=== PATIENT | female | born 1995 | race Two or more races ===

== ENCOUNTER 2016-11-09 12:15 | Emergency (ER) | payer OTHER ==
[2016-11-09 12:25] VITALS: BP 140/73; BMI 39.2
[2016-11-09] MEDS ORDERED: IBUPROFEN 100 MG/5 ML UNIT DOSE CUPS PO ONE (12:25)
[2016-11-09 13:20] VITALS: PULSE 118; TEMP 100.3
--- NOTE | 2016-11-09 13:22 | PDOC ---
History of Present Illness - General Chief Complaint: Cold Symptoms Stated Complaint: RAPID HEARTBEAT, FEVER Time Seen by Provider: 11/09/16 13:17 History Source: Patient Exam Limitations: No Limitations - History of Present Illness Initial Comments: 11/09/16 15:01 Complaint: Sore throat Patient is a 21-year-old female with 1 day of fever, sore throat. Son has strep. Patient went to her doctor but because her heart rate was elevated they sent her to the ER. Patient has no difficulty speaking and can swallow. Patient does not appear ill GENERAL/CONSTITUTIONAL: +fever, weakness. No: dizziness HEAD, EYES, EARS, NOSE AND THROAT: No change in vision. No ear pain or discharge. +sore throat. CARDIOVASCULAR: No chest pain RESPIRATORY: No shortness of breath or cough GASTROINTESTINAL: No pain, nausea, vomiting, diarrhea or constipation GENITOURINARY: No dysuria MUSCULOSKELETAL: No neck or back pain SKIN: No rash NEUROLOGIC: No headache, vertigo, loss of consciousness, or loss of sensation. GENERAL: The patient is awake, alert, and fully oriented, in no acute distress. HEAD: Normal with no signs of trauma. EYES: Pupils equal, round and reactive to light, sclera anicteric, conjunctiva clear. ENT: pharynx: mild erythema, no exudate, uvula midline NECK: supple CHEST: clear, nontender, rr ABD: soft, nontender EXTREMITIES: Normal range of motion, no edema. NEUROLOGICAL: Normal speech, normal gait. SKIN: Warm, Dry Past History - Past Medical History Allergies/Adverse Reactions: Allergies Allergy/AdvReac Type Severity Reaction Status Date / Time No Known Allergies Allergy Verified 11/09/16 12:21 Home Medications: Ambulatory Orders Amoxicillin - [Amoxicillin 875mg Tablet -] 875 mg PO BID #20 tablet 11/09/16 Anemia: Yes (with past ) Asthma: No Cancer: No Cardiac Disorders: No CVA: No COPD: No CHF: No Dementia: No Diabetes: No GI Disorders: No Disorders: No HTN: No Hypercholesterolemia: No Liver Disease: No Seizures: No Thyroid Disease: No - Surgical History Abdominal Surgery: No Appendectomy: No Cardiac Surgery: No Cholecystectomy: No Lung Surgery: No Neurologic Surgery: No Orthopedic Surgery: No - Reproductive History (#): 5 Para: 1 Cervical CA: No Dysfunctional Uterine Bleeding: No Ectopic : No Endometrial CA: No Polycystic Ovaries: No Therapeutic (s) & number: Yes (3) Tubal Ligation: No Spontaneous : 1 - Immunization History Immunization Up to Date: Yes - Psycho/Social/Smoking Cessation Hx Anxiety: No (DENIES) Suicidal Ideation: No Smoking Status: No Smoking History: Never smoked Have you smoked in the past 12 months: No Number of Cigarettes Smoked Daily: 0 Information on smoking cessation initiated: No Hx Alcohol Use: No Drug/Substance Use Hx: No Substance Use Type: None *Physical Exam - Vital Signs Last Vital Signs Temp Pulse Resp BP Pulse Ox 100.3 F H 118 H 18 140/73 100 11/09/16 13:20 11/09/16 13:20 11/09/16 12:22 11/09/16 12:22 11/09/16 12:22 ED Treatment Course - Medications Given in the ED: ED Medications Discontinued Medications Generic Name Dose Route Start Last Admin Trade Name Rachid PRN Reason Stop Dose Admin Ibuprofen 600 mg 11/09/16 12:25 11/09/16 12:27 Motrin Oral Suspension - PO 11/09/16 12:26 600 mg NOW ONE Administration Medical Decision Making - Medical Decision Making 11/09/16 15:04 Patient will have strep done, also wants flu swab done. Strep is positive, we will discharge patient home on amoxicillin, will call her with flu results 3 PM: Spoke with patient regarding negative flu results and answered any other questions she had *DC/Admit/Observation/Transfer Diagnosis at time of Disposition: Strep pharyngitis - Discharge Dispostion Disposition: HOME Condition at time of disposition: Stable Admit: No - Prescriptions Prescriptions: Amoxicillin - [Amoxicillin 875mg Tablet -] 875 mg PO BID #20 tablet - Patient Instructions Printed Discharge Instructions: Strep Throat Additional Instructions: Drink 2-3 L of water daily Take Tylenol 650 mg every 4 hours or Motrin 600 mg every 6 hours for fever and pain 8 the amoxicillin one tablet every 12 hours for 10 days, do not stop it early even if you feel better Return to the nearest ER if short of breath, unable to swallow or feeling sicker Followup with your doctor in one to 2 days
== END 2016-11-09 14:08 | disposition home or self-care (01) ==
LOC: JERFT 12:15
DX: J02.0 Streptococcal pharyngitis (principal); B95.0 Streptococcus, group A, as the cause of diseases classified elsewhere
CPT/HCPCS: 87070; 87077; 87430; 87804; 99281-25

== ENCOUNTER 2017-01-20 23:09 | Emergency (ER) | payer OTHER ==
[2017-01-20 23:25] VITALS: BP 124/70; PULSE 74; TEMP 98; BMI 32.1
--- NOTE | 2017-01-21 00:08 | PDOC ---
History of Present Illness - General History Source: Patient <Yonatan Hernandez - Last Filed: 01/21/17 00:12> - General History Source: Patient Exam Limitations: No Limitations - History of Present Illness Initial Comments: 01/21/17 00:14 The patient is a 21 year old female with no significant past medical history who presents to the ED for a small rash on the right scapula. Patient reports she noted a small rash a few days ago on the right scapula that is now about 1.5cm in length and itchy. Denies any sick contacts. Denies bug bites, new detergents, new shampoos, or new soaps. The patient denies fever, chills, cough, SOB, chest pain, and palpitations. The patient denies abdominal pain, nausea, vomiting, and diarrhea. Allergies: NKDA Social History: No alcohol, tobacco, or drug use reported. Past Surgical History: None reported PCP: Dr. Mara Jo <Kaitlyn Beal - Last Filed: 01/21/17 00:15> - General Chief Complaint: Rash Stated Complaint: RASH Time Seen by Provider: 01/21/17 00:02 Past History - Past Medical History Anemia: Yes (with past ) Asthma: No Cancer: No Cardiac Disorders: No CVA: No COPD: No CHF: No Dementia: No Diabetes: No GI Disorders: No Disorders: No HTN: No Hypercholesterolemia: No Liver Disease: No Seizures: No Thyroid Disease: No - Surgical History Abdominal Surgery: No Appendectomy: No Cardiac Surgery: No Cholecystectomy: No Lung Surgery: No Neurologic Surgery: No Orthopedic Surgery: No - Reproductive History (#): 5 Para: 1 Cervical CA: No Dysfunctional Uterine Bleeding: No Ectopic : No Endometrial CA: No Polycystic Ovaries: No Therapeutic (s) & number: Yes (3) Tubal Ligation: No Spontaneous : 1 - Immunization History Immunization Up to Date: Yes - Psycho/Social/Smoking Cessation Hx Anxiety: No (DENIES) Suicidal Ideation: No Smoking Status: No Smoking History: Never smoked Have you smoked in the past 12 months: No Number of Cigarettes Smoked Daily: 0 Hx Alcohol Use: No Drug/Substance Use Hx: No Substance Use Type: None <Yonatan Hernandez - Last Filed: 01/21/17 00:12> <Kaitlyn Beal - Last Filed: 01/21/17 00:15> - Past Medical History Allergies/Adverse Reactions: Allergies Allergy/AdvReac Type Severity Reaction Status Date / Time No Known Allergies Allergy Verified 01/20/17 23:16 Home Medications: Ambulatory Orders Clotrimazole [Lotrimin AF] 24 gm TP TID #1 cream..g. 01/21/17 Review of Systems - Review of Systems Able to Perform ROS?: Yes Comments:: 01/21/17 00:14 CONSTITUTIONAL: Absent: fever, no chills, no fatigue EYES: Absent: visual changes ENT: Absent: ear pain, no sore throat CARDIOVASCULAR: Absent: chest pain, no palpitations RESPIRATORY: Absent: cough, no SOB GI: Absent: abdominal pain, no nausea, no vomiting, no constipation, no diarrhea GENITOURINARY: Absent: dysuria, no frequency, no hematuria MUSCULOSKELETAL: Absent: back pain, no arthralgia, no myalgia SKIN: +rash on right scapula NEURO: Absent: headache <Kaitlyn Beal - Last Filed: 01/21/17 00:15> *Physical Exam - Vital Signs Last Vital Signs Temp Pulse Resp BP Pulse Ox 98 F 74 16 124/70 100 01/20/17 23:17 01/20/17 23:17 01/20/17 23:17 01/20/17 23:17 01/20/17 23:17 <Yonatan Hernandez - Last Filed: 01/21/17 00:12> - Vital Signs Last Vital Signs Temp Pulse Resp BP Pulse Ox 98 F 74 16 124/70 100 01/20/17 23:17 01/20/17 23:17 01/20/17 23:17 01/20/17 23:17 01/20/17 23:17 - Physical Exam Comments: 01/21/17 00:14 GENERAL: Well-appearing, well-nourished. No apparent distress. HEENT: Normocephalic, atraumatic. PERRL, EOM intact. CARDIOVASCULAR: Normal S1, S2. Regular rate and rhythm. PULMONARY: Clear to auscultation bilaterally. ABDOMEN: Soft, non-distended, non-tender. EXTREMITIES: Normal ROM in all four extremities. No gross deformities. SKIN: Warm, dry. 1.5 cm right scapula central clearing, no erythema surrounding the actual lesion. NEUROLOGICAL: No focal neurological deficits. <Kaitlyn Beal - Last Filed: 01/21/17 00:15> Medical Decision Making - Medical Decision Making 01/21/17 00:12 Dr. Hernandez: The scribe's documentation has been prepared under my direction and personally reviewed by me in its entirery. I confirm that the note above accurately reflects all work, treatment, procedures, and medical decision making performed by me. <Yonatan Hernandez - Last Filed: 01/21/17 00:12> *DC/Admit/Observation/Transfer - Discharge Dispostion Admit: No <Yonatan Hernandez - Last Filed: 01/21/17 00:12> - Attestations Scribe Attestion: 01/21/17 00:14 Documentation prepared by Kaitlyn Beal, acting as medical esthetician for Yonatan Hernandez MD/DO. <Kaitlyn Beal - Last Filed: 01/21/17 00:15> Diagnosis at time of Disposition: Tinea corporis - Prescriptions Prescriptions: Clotrimazole [Lotrimin AF] 24 gm TP TID #1 cream..g. - Referrals Referrals: Mara Jo MD [Primary Care Provider] - - Patient Instructions Printed Discharge Instructions: DI for Tinea Corporis Additional Instructions: Keep area clean and dry. Apply cream three times daily. Follow up with your doctor for dermatology referral if lesion doesn't improve.
== END 2017-01-21 00:19 | disposition home or self-care (01) ==
LOC: JER 23:09
DX: B35.4 Tinea corporis (principal)
CPT/HCPCS: 99281-25

== ENCOUNTER 2018-10-16 18:54 | Emergency (ER) | payer OTHER ==
[2018-10-16 19:07] VITALS: BP 138/83; PULSE 77; TEMP 98.6; BMI 43.4
--- NOTE | 2018-10-16 20:19 | PDOC ---
History of Present Illness - General Chief Complaint: Pain Stated Complaint: ABD PAIN/BLOOD IN STOOL Time Seen by Provider: 10/16/18 19:54 - History of Present Illness Initial Comments: Yvette Murphy is a 23yo woman with a PMH of obesity and ovarian cysts who presents with mild right pelvic pain, present for several days, and BRBPR today that she noted with a BM. She states that she has an IUD, and because of the location of the pain was very concerned that she might have had an ectopic . She says that she read online that she could possible have a "burst fallopian tube" due to the location of the pain. She denies any severe pain, nausea/vomiting, lightheadedness, vaginal discharge, or bleeding. She states that the pain is not that bad, and she was going to follow up with her regular doctor next week. She decided to present today because she felt that she needed to have a bowel movement, but when she went she saw red blood in the water in the toilet bowl along with normal stool. She denies any recent or chronic constipation, denies straining, and denies any history of rectal bleeding. She did not have any pain associated with the incident and did not have any additional bleeding. Past History - Past Medical History Allergies/Adverse Reactions: Allergies Allergy/AdvReac Type Severity Reaction Status Date / Time No Known Allergies Allergy Verified 10/16/18 19:06 Home Medications: Ambulatory Orders NK [No Known Home Medication] 02/15/18 Anemia: Yes (with past ) Asthma: No Cancer: No Cardiac Disorders: No CVA: No COPD: No CHF: No DVT: No Dementia: No Diabetes: No GI Disorders: No Disorders: No HTN: No Hypercholesterolemia: No Liver Disease: No Seizures: No Thyroid Disease: No - Surgical History Abdominal Surgery: No Appendectomy: No Cardiac Surgery: No Cholecystectomy: No Lung Surgery: No Neurologic Surgery: No Orthopedic Surgery: No - Reproductive History (#): 5 Para: 1 Cervical CA: No Dysfunctional Uterine Bleeding: No Ectopic : No Endometrial CA: No Polycystic Ovaries: No Therapeutic (s) & number: Yes (3) Tubal Ligation: No Spontaneous : 1 - Immunization History Immunization Up to Date: Yes - Suicide/Smoking/Psychosocial Hx Smoking Status: No Smoking History: Never smoked Have you smoked in the past 12 months: No Number of Cigarettes Smoked Daily: 0 Hx Alcohol Use: No Drug/Substance Use Hx: No Substance Use Type: None Review of Systems - Review of Systems Comments:: General: No fevers, no chills, no weight or appetite change, no malaise HEENT: No changes in vision, no changes in hearing, no congestion, no sore throat CV: No chest pain, no palpitations, no LE edema Pulm: No SOB, no cough, no wheezing GI: No nausea or vomiting, no change in bowel habits, no melena : No frequency, no urgency, no dysuria. +suprapubic pain Musc: No back pain, no joint swelling, no recent injury Skin: No rash, no lesions, no erythema Endo: No excessive thirst, no heat/cold intolerance Heme: No unusual bruising or bleeding, no swollen glands Neuro: No syncope, no numbness/tingling, no focal weakness Vasc: No claudication Psych: No recent change in mood, no SI or HI *Physical Exam - Vital Signs Last Vital Signs Temp Pulse Resp BP Pulse Ox 98.6 F 77 18 138/83 99 10/16/18 19:04 10/16/18 19:04 10/16/18 19:04 10/16/18 19:04 10/16/18 19:04 - Physical Exam Comments: General: Comfortable, no acute distress, obese, appears stated age HEENT: PERRL, EOMI, MMM, voice normal, normal neck ROM Cards: RRR, no murmur appreciated Pulm: Comfortable on room air, clear to auscultation bilaterally Abd: Soft, nontender, nondistended : No CVA tenderness. Mild right suprapubic tenderness Rectal: Normal tone, no blood noted, no perianal lesions. Soft stool palpable in rectum. Ext: Atraumatic. No LE edema. ROM intact. Neuro: A&Ox3, CN grossly intact, normal speech, motor/sensory grossly intact and symmetric Psych: Mood appropriate to situation Moderate Sedation - Procedure Monitoring Vital Signs: Procedure Monitoring Vital Signs Temperature 98.6 F 10/16/18 19:04 Pulse Rate 77 10/16/18 19:04 Respiratory Rate 18 10/16/18 19:04 Blood Pressure 138/83 10/16/18 19:04 O2 Sat by Pulse Oximetry (%) 99 10/16/18 19:04 Medical Decision Making - Medical Decision Making 10/16/18 20:04 Yvette Murphy is a 23yo woman with a PMH of obesity and ovarian cysts who presents with mild right pelvic pain, present for several days, and BRBPR today that she noted with a BM. She presented because she read online that she could have an ectopic and was afraid that her "fallopian tube burst." - Reassuring physical exam; mild R suprapubic TTP. VSS, no additional symptoms including fever, nausea, vomiting. - Rectal exam w/o external abnormalities. No blood. No palpable hemorrhoids or other abnormalities. Report of blood in toilet bowl still most likely hemorrhoids without other abnormalities, pain, or continued bleeding. - Given h/o cysts, could have a ruptured ovarian cyst. Unlikely torsion given relatively benign presentation. - Will r/o UTI or ectopic as a cause of suprapubic pain. UA and urine preg sent - Will most likely order transvaginal US for evaluation 10/16/18 20:41 - UA negative - Urine preg negative - Transvaginal US ordered to evaluate for cyst, torsion, or other causes of suprapubic pain 10/16/18 21:50 - US completed. No evidence of torsion, no free fluid. 2.2cm Left ovarian cyst noted. Multiple nabothian cysts in the cervix. - Will d/c home with gyne and PMD follow up Discussed with Dr Cary. Pauline Collins PGY1 *DC/Admit/Observation/Transfer Diagnosis at time of Disposition: Pelvic pain, BRBPR (bright red blood per rectum) - Discharge Dispostion Disposition: HOME Condition at time of disposition: Stable Decision to Admit order: No - Referrals Referrals: Mara Jo MD [Primary Care Provider] - Jesus Alberto Little MD [Staff Physician] - - Patient Instructions Printed Discharge Instructions: DI for Rectal Bleeding Additional Instructions: Discharge Instructions: You were seen in the ER for right pelvic pain and red blood during a bowel movement. You had a urine test to check for and infection, and you also had an ultrasound to check your ovaries and pelvis. All of your results were normal, and your test was negative. Home Care and Follow Up: - You should continue to take any medications as previously prescribed - You may use acetaminophen (Tylenol) 650-1000mg or ibuprofen (Advil, Motrin) 600mg every 6-8 hours as needed for pain - If you have additional episodes of rectal bleeding, you should keep track of when they occur and follow up with your doctor. Episodes of bright red bleeding that stop after a bowel movement without any intervention are generally benign, but you should be seen to make sure. Your primary doctor may recommend seeing a specialist - Make an appointment to see your regular doctor for follow up within the next week - Seek immediate medical care if you have worsening symptoms, severe bleeding that does not stop after a bowel movement, painful bleeding, severe abdominal pain with nausea/vomiting, or any medical emergency. - Post Discharge Activity
[2018-10-16 20:22] LABS: URINE APPEARANCE CLEAR; URINE BILIRUBIN NEGATIVE (<2.0 mg/dL); URINE COLOR YELLOW; URINE GLUCOSE (UA) NEGATIVE (NEGATIVE); URINE KETONE NEGATIVE (NEGATIVE); URINE LEUK ESTERASE NEGATIVE (NEGATIVE); URINE NITRITE NEGATIVE (NEGATIVE); URINE PROTEIN NEGATIVE (NEGATIVE); URINE UROBILINOGEN NEGATIVE mg/dL (0.2-1.0)
[2018-10-16 20:23] LABS: HCG,QUALITATIVE URINE Negative
--- NOTE | 2018-10-16 22:01 | PDOC ---
Attending Attestation - HPI HPI: 10/16/18 22:01 The patient is a 23 year old female with history of ovarian cysts who presents to the ED with complaints of right pelvic/suprapubic pain for the past few days. She also reports an episode of bright red blood in the toilet after a bowel movement this evening. Denies any associated diarrhea, nausea or vomiting. Denies fevers or chills. Patient also has an IUD. - Physicial Exam PE: 10/16/18 22:01 GENERAL: Well developed, well nourished. Awake and alert. No acute distress. CARDIOVASCULAR: Regular rate and rhythm. No murmurs, rubs, or gallops. PULMONARY: No evidence of respiratory distress. Lungs clear to auscultation bilaterally. ABDOMINAL: Soft. Right superpubic tenderness. Non-distended. No rebound or guarding. No organomegaly. Normoactive bowel sounds. EXTREMITIES: No cyanosis. No clubbing. No edema. No calf tenderness. SKIN: Warm and dry. Normal capillary refill. No rashes. No jaundice. NEUROLOGICAL: Alert, awake, appropriate. Cranial nerves 2-12 intact. - Medical Decision Making 10/16/18 22:02 Documentation prepared by Kortney Bowman, acting as chief medical technologist for Nelsy Cary MD. <Kortney Bowman - Last Filed: 10/16/18 22:01> - Resident Resident Name: Pauline Collins - ED Attending Attestation I have performed the following: I have examined & evaluated the patient, The case was reviewed & discussed with the resident, I agree w/resident's findings & plan, Exceptions are as noted - Medical Decision Making 10/16/18 23:28 negative test UA negative US no torsion, no ruptured ovarian cysts, no pelvic masses plan pt will follow up with her social insurance adviser <Nelsy Cary - Last Filed: 10/16/18 23:29>
== END 2018-10-16 22:14 | disposition home or self-care (01) ==
LOC: JER 18:54 → SUPCPDRO 18:54 → JER 22:14
DX: R10.2 Pelvic and perineal pain (principal); K62.5 Hemorrhage of anus and rectum; N83.202 Unspecified ovarian cyst, left side; N88.8 Other specified noninflammatory disorders of cervix uteri
CPT/HCPCS: 76830-TC; 81003; 84703; 99282-25

== ENCOUNTER 2020-11-06 19:40 | Emergency (ER) | payer OTHER ==
[2020-11-06 19:53] VITALS: BP 124/79; TEMP 98.2; BMI 28.3
[2020-11-06 20:51] LABS: URINE APPEARANCE CLEAR; URINE BILIRUBIN NEGATIVE (NEGATIVE); URINE COLOR YELLOW; URINE GLUCOSE (UA) NEGATIVE (NEGATIVE); URINE KETONE NEGATIVE (NEGATIVE); URINE LEUK ESTERASE NEGATIVE (NEGATIVE); URINE NITRITE NEGATIVE (NEGATIVE); URINE PROTEIN NEGATIVE (NEGATIVE); URINE UROBILINOGEN 0.2 mg/dL (0.2-1.0)
[2020-11-06 20:54] LABS: HCG,QUALITATIVE URINE Negative
[2020-11-06] MEDS ORDERED: IBUPROFEN 600 MG TABLET (FP) PO ONE ×2 (22:42→22:52)
[2020-11-06 23:05] VITALS: PULSE 77
== END 2020-11-06 22:58 | disposition home or self-care (01) ==
LOC: JER 19:40
DX: R10.2 Pelvic and perineal pain (principal); N83.202 Unspecified ovarian cyst, left side
CPT/HCPCS: 36415; 76830-TC; 76856-TC; 81003; 84703; 87086; 87491; 87591; 99284-25

== ENCOUNTER 2021-04-19 21:36 | Emergency (ER) | payer OTHER ==
[2021-04-19 21:42] VITALS: BMI 30.2
[2021-04-19 22:48] LABS: BASO % 0.8 % (0-2.0); HEMATOCRIT 38.3 % (32.4-45.2); HEMOGLOBIN 13.1 GM/dL (10.7-15.3); LYMPH % 37.7 % (8-40); MCH 29.5 pg (25.7-33.7); MCHC 34.1 g/dl (32.0-36.0); MEAN CELL VOLUME 86.4 fl (80-96); MEAN PLT VOLUME 6.7 fl (7.5-11.1); MONO % 5.6 % (3.8-10.2); NEUT % 52.9 % (42.8-82.8); PLATELET COUNT 363 10^3/uL (134-434); RBC 4.43 M/mm3 (3.60-5.2); RDW 13.2 % (11.6-15.6); WHITE BLOOD COUNT 6.8 K/mm3 (4.0-10.0)
[2021-04-19] MEDS ORDERED: ACETAMINOPHEN 1000 MG/100 ML VIAL (NON FORMULARY) IVPB ONE (22:48)
[2021-04-19] MEDS ORDERED: ACETAMINOPHEN INJECTION 100 ML IVPB ONE (22:48)
[2021-04-19] MEDS ORDERED: SODIUM CHLORIDE 0.9% 500 ML INFUS.BAG IV ONE (22:48)
[2021-04-19 22:58] LABS: CALCIUM 8.4 mg/dL (8.5-10.1)
[2021-04-19 22:59] LABS: ALBUMIN 3.7 g/dl (3.4-5.0); BLOOD UREA NITROGEN 14.3 mg/dL (7-18)
[2021-04-19 23:02] LABS: CREATININE 0.6 mg/dL (0.55-1.3)
[2021-04-19 23:04] LABS: BILIRUBIN,TOTAL 0.3 mg/dL (0.2-1); TOT PROT 7.2 g/dl (6.4-8.2)
[2021-04-20 01:22] VITALS: BP 126/79; PULSE 85; TEMP 98.3
== END 2021-04-20 01:22 | disposition home or self-care (01) ==
LOC: JER 21:36
PROC: 3E033NZ Introduction of Analgesics, Hypnotics, Sedatives into Peripheral Vein, Percutaneous Approach (ICD-10-PCS; principal; 2021-04-19)
DX: R10.13 Epigastric pain (principal)
CPT/HCPCS: 36415; 76705-TC; 80053; 83605; 83690; 84703; 85025; 96374; 99284-25; J0131

== ENCOUNTER 2023-07-23 19:48 | Emergency (ER) | payer OTHER ==
[2023-07-23 19:55] VITALS: BMI 30.2
[2023-07-23 20:50] LABS: BASO % 1.1 % (0-2.0); EOS % 0.9 % (0-4.5); HEMATOCRIT 31.6 % (32.4-45.2); HEMOGLOBIN 10.4 GM/dL (10.7-15.3); LYMPH % 27.8 % (8-40); MCH 25.9 pg (25.7-33.7); MCHC 32.8 g/dl (32.0-36.0); MEAN CELL VOLUME 78.7 fl (80-96); MEAN PLT VOLUME 7.1 fl (7.5-11.1); NEUT % 63.2 % (42.8-82.8); PLATELET COUNT 380 10^3/uL (134-434); RBC 4.01 M/mm3 (3.60-5.2); RDW 15.3 % (11.6-15.6); WHITE BLOOD COUNT 9.4 K/mm3 (4.0-10.0)
[2023-07-23 20:53] LABS: EPI CELLS 28 /uL (0-25.1); HYALINE CASTS 1 /uL (0-3.1); URINE APPEARANCE CLEAR; URINE BACTERIA 460 /uL (0-1359); URINE BILIRUBIN NEGATIVE (NEGATIVE); URINE COLOR YELLOW; URINE GLUCOSE (UA) NEGATIVE (NEGATIVE); URINE KETONE NEGATIVE (NEGATIVE); URINE LEUK ESTERASE TRACE (NEGATIVE); URINE NITRITE NEGATIVE (NEGATIVE); URINE PROTEIN NEGATIVE (NEGATIVE); URINE RBC 12 /uL (0-23.9); URINE WBC 33 /uL (0-25.8)
[2023-07-23 21:10] LABS: ALBUMIN 3.5 g/dl (3.4-5.0); CALCIUM 8.8 mg/dL (8.5-10.1)
[2023-07-23 21:13] LABS: CREATININE 0.8 mg/dL (0.55-1.3)
[2023-07-23 21:15] LABS: BILIRUBIN,TOTAL 0.2 mg/dL (0.2-1); TOT PROT 7.1 g/dl (6.4-8.2)
[2023-07-23] MEDS ORDERED: ACETAMINOPHEN 325 MG TABLET (FP) PO ONE (23:15)
[2023-07-23] MEDS ORDERED: CEFTRIAXONE 1 GM in DEXTROSE 5%-WATER - 100 ML IVPB ONE (23:25)
[2023-07-23] MEDS ORDERED: ACETAMINOPHEN 325 MG TABLET (FP) ONE (23:51)
[2023-07-23] MEDS ORDERED: CEFTRIAXONE 1 GM/50 ML BAG ONE (23:54)
[2023-07-24 00:52] VITALS: BP 116/74; PULSE 80; RESP 18; TEMP 97.9
== END 2023-07-24 01:18 | disposition home or self-care (01) ==
LOC: JER 19:48
DX: O26.891 Other specified pregnancy related conditions, first trimester (principal); R10.2 Pelvic and perineal pain; O23.41 Unspecified infection of urinary tract in pregnancy, first trimester; R10.30 Lower abdominal pain, unspecified; Z3A.01 Less than 8 weeks gestation of pregnancy
CPT/HCPCS: 36415; 76830-TC; 80053; 81003; 84702; 85025; 86850; 86900; 86901; 87086; 99284-25

== ENCOUNTER 2023-09-14 15:06 | Emergency (ER) | payer OTHER ==
[2023-09-14 15:17] VITALS: BP 139/63; PULSE 97; RESP 18; TEMP 98; BMI 32.8
[2023-09-14 16:36] LABS: BASO % 0.5 % (0-2.0); HEMATOCRIT 33.6 % (32.4-45.2); HEMOGLOBIN 11.3 GM/dL (10.7-15.3); LYMPH % 22.5 % (8-40); MCH 27.5 pg (25.7-33.7); MCHC 33.6 g/dl (32.0-36.0); MEAN CELL VOLUME 81.8 fl (80-96); MEAN PLT VOLUME 6.8 fl (7.5-11.1); MONO % 7.1 % (3.8-10.2); NEUT % 68.9 % (42.8-82.8); PLATELET COUNT 293 10^3/uL (134-434); RBC 4.11 M/mm3 (3.60-5.2); RDW 19.9 % (11.6-15.6); WHITE BLOOD COUNT 7.3 K/mm3 (4.0-10.0)
[2023-09-14 16:37] LABS: PH,URINE 6.5 (5.0-8.0); URINE APPEARANCE CLEAR; URINE BILIRUBIN NEGATIVE (NEGATIVE); URINE COLOR YELLOW; URINE GLUCOSE (UA) NEGATIVE (NEGATIVE); URINE KETONE NEGATIVE (NEGATIVE); URINE LEUK ESTERASE NEGATIVE (NEGATIVE); URINE NITRITE NEGATIVE (NEGATIVE); URINE PROTEIN NEGATIVE (NEGATIVE); URINE UROBILINOGEN 0.2 mg/dL (0.2-1.0)
[2023-09-14] MEDS: SODIUM CHLORIDE 0.9% 500 ML INFUS.BAG IV ONE (16:39)
[2023-09-14 17:00] LABS: POTASSIUM 4.2 mmol/L (3.5-5.1)
[2023-09-14 17:02] LABS: ALBUMIN 3.1 g/dl (3.4-5.0); BLOOD UREA NITROGEN 7.1 mg/dL (7-18); CALCIUM 8.3 mg/dL (8.5-10.1)
[2023-09-14 17:05] LABS: CREATININE 0.5 mg/dL (0.55-1.3)
[2023-09-14 17:07] LABS: BILIRUBIN,TOTAL 0.2 mg/dL (0.2-1); TOT PROT 6.6 g/dl (6.4-8.2)
== END 2023-09-14 18:52 | disposition home or self-care (01) ==
LOC: JER 15:06
DX: O99.891 Other specified diseases and conditions complicating pregnancy (principal); R05.9 Cough, unspecified; O21.9 Vomiting of pregnancy, unspecified; O99.511 Diseases of the respiratory system complicating pregnancy, first trimester; J11.1 Influenza due to unidentified influenza virus with other respiratory manifestations; B34.9 Viral infection, unspecified; Z20.822 Contact with and (suspected) exposure to COVID-19
CPT/HCPCS: 0241U-QW; 36415; 80053; 81003; 85025; 87086; 99283-25

== ENCOUNTER 2023-10-25 19:58 | Emergency (ER) | payer OTHER ==
[2023-10-25 20:08] VITALS: TEMP 98.6; BMI 33.4
[2023-10-25 22:37] VITALS: BP 116/75; PULSE 92; RESP 18
== END 2023-10-25 22:30 | disposition home or self-care (01) ==
LOC: JER 19:58
DX: O9A.212 Injury, poisoning and certain other consequences of external causes complicating pregnancy, second trimester (principal); O60.02 Preterm labor without delivery, second trimester; V43.52XA Car driver injured in collision with other type car in traffic accident, initial encounter; Z3A.20 20 weeks gestation of pregnancy
CPT/HCPCS: 76815-TC; 99284-25